=== PATIENT | female | born 2005 | race Caucasian/White ===

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

== ENCOUNTER 2024-01-20 11:54 | Emergency (ER) | payer BC | END 2024-01-20 12:42 | disposition home or self-care (01) | LOC: DL.ED 11:54 | DX: G40.909 Epilepsy, unspecified, not intractable, without status epilepticus (principal); Z79.899 Other long term (current) drug therapy | CPT/HCPCS: 99283 ==

== ENCOUNTER 2024-01-20 20:40 | Emergency (ER) | payer BC ==
[2024-01-20 21:33] LABS: BASOPHILS PERCENT AUTO 0.3 % (0.0-1.0); EOSINOPHILS PERCENT AUTO 1.3 % (1.0-3.0); HEMATOCRIT 40.7 % (37.0-47.0); HEMOGLOBIN 14.1 g/dL (12.0-16.0); MEAN CORPUSCULAR HEMOGLOBIN 31.5 pg (27.0-34.0); MEAN CORPUSCULAR HGB CONC 34.6 g/dL (33.0-35.0); MEAN CORPUSCULAR VOLUME 90.8 fL (80-100); MONOCYTES PERCENT AUTO 9.4 % (2-8); PLATELET COUNT,PLT 205 10^3/uL (150-450); RED BLOOD CELL COUNT 4.48 10^6/uL (4.2-5.4); WHITE BLOOD CELL COUNT,WBC 6.7 10^3/uL (5.0-10.0)
[2024-01-20] MEDS: Pantoprazole 40 MG in Sodium Chloride 0.9% 100 ML IV ONE (21:43)
[2024-01-20] MEDS: Sodium Chloride 0.9% 1,000 ML IV ONE (21:43)
[2024-01-20 21:54] LABS: PROTHROMBIN TIME 10.5 SEC (9.0-12.0)
[2024-01-20 22:01] LABS: A/G RATIO 1.5; ALANINE AMINOTRANSFERASE,ALT 26 U/L (14-59); ALBUMIN 3.9 g/dL (3.4-5.0); ALKALINE PHOSPHATASE 64 U/L (46-116); ANION GAP 12.8 mEq/L (7-13); ASPARTATE AMNIOTRANSFERASE,AST 24 U/L (15-37); BILIRUBIN TOTAL 1.5 mg/dL (0.2-1.0); BLOOD UREA NITROGEN,BUN 16 mg/dL (7-18); BUN/CREATININE RATIO 16.8 (No establ ref range); CALCIUM 8.8 mg/dL (8.5-10.1); CARBON DIOXIDE,CO2 25 mmol/L (21-32); CHLORIDE,CL 106 mmol/L (98-107); CREATININE 0.95 mg/dL (0.55-1.02); GLUCOSE RANDOM 115 mg/dL (70-99); LIPASE 33 U/L (16-77); MAGNESIUM 1.8 mg/dL (1.8-2.4); POTASSIUM,K 3.8 mmol/L (3.5-5.1); PROTEIN TOTAL,TP 6.5 g/dL (6.4-8.2); SODIUM,NA 140 mmol/L (136-145)
[2024-01-20 22:11] LABS: ESTIMATED GFR 89 mL/min (>=60); ETHANOL BLOOD MEDICAL < 3 mg/dL (0)
[2024-01-20 22:17] LABS: APPEARANCE,URINE CLEAR (CLEAR); BILIRUBIN,URINE NEGATIVE (NEGATIVE); COLOR,URINE YELLOW (YELLOW); GLUCOSE,URINE NEGATIVE (NEGATIVE); KETONES,URINE 40 (NEGATIVE); LEUKOCYTE ESTERASE,URINE SMALL (NEGATIVE); NITRITE,URINE NEGATIVE (NEGATIVE); OCCULT BLOOD,URINE NEGATIVE (NEGATIVE); PROTEIN,URINE NEGATIVE (NEGATIVE); UROBILINOGEN,URINE 0.2 mg/dL (0.2-1.0)
[2024-01-20 22:36] LABS: BACTERIA,URINE FEW /HPF (0-FEW/HPF); EPITHELIAL CELLS,URINE MODERATE /HPF (NOT SEEN); MUCUS,URINE FEW /LPF (NOT SEEN); RBC,URINE 0-5 /HPF (0-5)
[2024-01-20] MEDS: Iopamidol 612 MG/ML 100 ML Bottle IVPUSH ONE (22:39)
[2024-01-21] MEDS: cefTRIAXone 1 GM Vial IVPUSH ONE (00:25)
[2024-01-21] MEDS: metroNIDAZOLE/Normal Saline 500 MG in Premix Bag 1 BAG IV ONE (00:45)
[2024-01-21] MEDS: Ciprofloxacin in D5W 400 MG in Premix Bag 1 BAG IV ONE (01:15)
== END 2024-01-21 02:33 | disposition home or self-care (01) ==
LOC: DL.ED 20:40
DX: K52.9 Noninfective gastroenteritis and colitis, unspecified (principal); K62.5 Hemorrhage of anus and rectum; N39.0 Urinary tract infection, site not specified
CPT/HCPCS: 36415; 74177; 80053; 80307; 81001; 81025; 82272; 83690; 83735; 85025; 85610; 86850; 86900; 86901; 87086; 96365; 96367; 96368; 96375; 99284; J0696; J0744; J1836; J2470; J3490; J7030; Q9967

== ENCOUNTER 2024-03-30 05:12 | Day surgery (SDC) | payer BC ==
[2024-03-30] MEDS: Dextrose 5%-0.45% NaCl 1,000 ML IV SCH (05:35)
[2024-03-30] MEDS ORDERED: Midazolam 1 MG/ML 2 ML SDV ONE (06:20)
[2024-03-30] MEDS ORDERED: fentaNYL 100 MCG/2 ML SDV ONE (06:20)
[2024-03-30] MEDS: fentaNYL 100 MCG/2 ML SDV IV ONE ×6 (06:31→06:43)
[2024-03-30] MEDS: Midazolam 1 MG/ML 2 ML SDV IV ONE ×10 (06:32→06:52)
== END 2024-03-30 09:00 | disposition home or self-care (01) ==
LOC: DL.ENDO 05:12
PROVIDERS: ATTEND Internal Medicine Gastroenterology
DX: K62.5 Hemorrhage of anus and rectum (principal); G90.A Postural orthostatic tachycardia syndrome [POTS]
CPT/HCPCS: 45378; J2250; J3010; J7799